=== PATIENT | female | born 1945 | race Caucasian/White ===

== ENCOUNTER 2017-11-20 08:42 | Observation (INO) | payer MEDICAID, MEDICARE, OTHER ==
[~2017-11-20] VITALS: Ht 180.3 cm; Wt 95.5 kg
[~2017-11-20 08:42] MED LIST: ATEN-102 PO; CARD120C4 PO; CIPR500T4 PO; DABI150 PO; FLAG500T PO; GLIP2.5T2 PO; LISI-363 PO
[2017-11-20 08:43] VITALS: BP 203/105; PULSE 118; RESP 20; TEMP 98.7; O2SAT 97
[2017-11-20] MEDS ORDERED: SODIUM CHLORID 0.9% 500 ML INJ 500 ML IV ONE (09:15)
--- NOTE | 2017-11-20 09:22 | PD ---
HPI Chief Complaint: weakness Time Seen by Provider: 09:02 Travel History International Travel<30 days: No Contact w/Intl Traveler<30days: No Traveled to known affect area: No History of Present Illness HPI 72 y/o female presents with generalized weakness and multiple falls over the past couple of weeks. It is gotten worse over the past couple of days. She states she lives at home by herself. She states she has had a start using a walker. She states that she is having no other specific complaints at this time other than an abrasion to her right elbow. She has not seen a physician for this yet. She states she has not had any loss of consciousness episodes with her falls. Patient is a poor historian and significant additional history is limited but she has states that she has been here before without change in medications or history. PFSH Past Medical History Narrative Medical by records Diabetes: Yes Diminished Hearing: No Hypertension: Yes Past Surgical History Narrative Surgical by records Section: Yes (X2) Social History Alcohol Use: No Tobacco Use: Yes (1/2 PPD) Substance Use: No Allergies-Medications (Allergen,Severity, Reaction): Coded Allergies: No Known Allergies (Unverified , 12/10/15) Reported Meds & Prescriptions Reported Meds & Active Scripts Active Flagyl (Metronidazole) 500 Mg Tab 500 Mg PO Q8H 8 Days Cipro (Ciprofloxacin HCl) 500 Mg Tab 500 Mg PO BID 8 Days Cardizem CD 120 mg (Diltiazem CD 120 mg) 120MG/24 Cap 1 Cap PO DAILY 30 Days Pradaxa 150 Mg Cap (Dabigatran) 150 Mg Cap 150 Mg PO BID 30 Days Reported Lisinopril 20 mg (Lisinopril) 20 Mg Tab 1 Tab PO DAILY Atenolol 50 Mg Tab 50 Mg PO DAILY Glipizide/Metformin HCl 5/500 (Glipizide-Metformin HCl 5/500) 1 Tab Tab 1 Tab PO BID Review of Systems ROS Limitations: Poor Historian Except as stated in HPI: all other systems reviewed are Neg Physical Exam Exam Limitations: Poor Historian Narrative GENERAL: 72 y/o female in no apparent distress SKIN: Focused skin assessment warm/dry. Abrasion over right elbow HEAD: Atraumatic. Normocephalic. EYES: Pupils equal and round. No scleral icterus. No injection or drainage. ENT: No nasal bleeding or discharge. Mucous membranes pink and moist. NECK: Trachea midline. No JVD. no tenderness in midline CARDIOVASCULAR: Regular rate and rhythm RESPIRATORY: No accessory muscle use. Clear to auscultation. Breath sounds equal bilaterally. GASTROINTESTINAL: Abdomen soft, non-tender, nondistended. MUSCULOSKELETAL: No obvious deformities. Pain with mild palpation of right elbow, no pain with other joints , neurovascularly intact, no lacerations over, compartments soft. NEUROLOGICAL: Awake. No obvious cranial nerve deficits. Motor grossly within normal limits. Normal speech. Data Data Last Documented VS Vital Signs Date Time Temp Pulse Resp B/P (MAP) Pulse Ox O2 Delivery O2 Flow Rate FiO2 11/20/17 11:26 104 16 141/79 (99) 98 Room Air 11/20/17 08:43 98.7 Orders Orders Electrocardiogram (11/20/17 09:03) Complete Blood Count With Diff (11/20/17 09:03) Comprehensive Metabolic Panel (11/20/17 09:03) Prothrombin Time / Inr (Pt) (11/20/17 09:03) Act Partial Throm Time (Ptt) (11/20/17 09:03) Lactic Acid Sepsis Protocol (11/20/17 09:03) Magnesium (Mg) (11/20/17 09:03) Ckmb (Isoenzyme) Profile (11/20/17 09:03) Troponin I (11/20/17 09:03) Urinalysis - C+S If Indicated (11/20/17 09:03) Chest, Single Ap (11/20/17 09:03) Ecg Monitoring (11/20/17 09:03) Iv Access Insert/Monitor (11/20/17 09:03) Oximetry (11/20/17 09:03) Ct Brain W/O Iv Contrast(Rout) (11/20/17 ) Sodium Chlorid 0.9% 500 Ml Inj (Ns 500 M (11/20/17 09:15) Elbow, Complete (4 Vws) (11/20/17 ) Splint Or Brace Apply/Monitor (11/20/17 09:59) Cath For Specimen (11/20/17 10:00) CKMB (11/20/17 09:20) CKMB% (11/20/17 09:20) Labs Laboratory Tests Test 11/20/17 09:20 11/20/17 09:25 11/20/17 10:00 White Blood Count 13.4 TH/MM3 Red Blood Count 5.32 MIL/MM3 Hemoglobin 16.0 GM/DL Hematocrit 47.3 % Mean Corpuscular Volume 88.8 FL Mean Corpuscular Hemoglobin 30.1 PG Mean Corpuscular Hemoglobin Concent 33.8 % Red Cell Distribution Width 15.5 % Platelet Count 335 TH/MM3 Mean Platelet Volume 9.8 FL Neutrophils (%) (Auto) 75.9 % Lymphocytes (%) (Auto) 17.4 % Monocytes (%) (Auto) 5.2 % Eosinophils (%) (Auto) 0.6 % Basophils (%) (Auto) 0.9 % Neutrophils # (Auto) 10.2 TH/MM3 Lymphocytes # (Auto) 2.3 TH/MM3 Monocytes # (Auto) 0.7 TH/MM3 Eosinophils # (Auto) 0.1 TH/MM3 Basophils # (Auto) 0.1 TH/MM3 CBC Comment DIFF FINAL Differential Comment Prothrombin Time 13.4 SEC Prothromb Time International Ratio 1.3 RATIO Activated Partial Thromboplast Time 53.1 SEC Blood Urea Nitrogen 11 MG/DL Creatinine 0.83 MG/DL Random Glucose 270 MG/DL Total Protein 8.0 GM/DL Albumin 3.6 GM/DL Calcium Level 9.6 MG/DL Magnesium Level 1.5 MG/DL Alkaline Phosphatase 120 U/L Aspartate Amino Transf (AST/SGOT) 21 U/L Alanine Aminotransferase (ALT/SGPT) 35 U/L Total Bilirubin 0.5 MG/DL Sodium Level 133 MEQ/L Potassium Level 3.8 MEQ/L Chloride Level 97 MEQ/L Carbon Dioxide Level 26.5 MEQ/L Anion Gap 10 MEQ/L Estimat Glomerular Filtration Rate 68 ML/MIN Total Creatine Kinase 133 U/L Creatine Kinase MB 1.4 NG/ML Troponin I LESS THAN 0.02 NG/ML Lactic Acid Level 1.4 mmol/L Urine Color LIGHT-YELLOW Urine Turbidity CLEAR Urine pH 7.0 Urine Specific [place] 1.005 Urine Protein 30 mg/dL Urine Glucose (UA) 300 mg/dL Urine Ketones NEG mg/dL Urine Occult Blood NEG Urine Nitrite NEG Urine Bilirubin NEG Urine Urobilinogen LESS THAN 2.0 MG/DL Urine Leukocyte Esterase NEG Urine RBC LESS THAN 1 /hpf Urine WBC LESS THAN 1 /hpf Urine Squamous Epithelial Cells <1 /hpf Microscopic Urinalysis Comment CATH-CULT NOT IND MDM Medical Decision Making Medical Screen Exam Complete: Yes Emergency Medical Condition: Yes Medical Record Reviewed: Yes ([facility] confirmed) Interpretation(s) EKG is A. fib at 115 results STEMI criteria, mild lateral depression CBC & BMP Diagram 11/20/17 09:20 Total Protein 8.0, Albumin 3.6, Calcium Level 9.6, Magnesium Level 1.5, Alkaline Phosphatase 120 H, Aspartate Amino Transf (AST/SGOT) 21, Alanine Aminotransferase (ALT/SGPT) 35, Total Bilirubin 0.5 Last 24 hours Impressions Chest X-Ray 11/20/17 0903 Signed Impressions: Service Date/Time: Monday, November 20, 2017 09:18 - CONCLUSION: No acute disease. Juan Lyon MD Head CT 11/20/17 0000 Signed Impressions: Service Date/Time: Monday, November 20, 2017 09:46 - CONCLUSION: 1. Mild ischemic atrophy. 2. No acute findings in the brain. Norris Schrader MD Elbow X-Ray 11/20/17 0000 Signed Impressions: Service Date/Time: Monday, November 20, 2017 09:19 - CONCLUSION: Possible avulsion injury off the tip of the olecranon. Norris Schrader MD Differential Diagnosis Anemia, renal failure, UTI, intercranial, electrolyte abnormality Narrative Course We will check blood work, urinalysis, trauma imaging and just with IV fluids and reevaluate X-ray shows possible avulsion fracture off the olecranon. Question age but given she has pain over this area and abrasion well-placed splint. Brother is here who has been helping take care of her over the past week and states given her progression he does not feel comfortable taking care of her at home. Patient is not safe for discharge home by herself. Will discuss with the hospitalist team Physician Communication Physician Communication dr hinojosa agrees to admit Diagnosis Primary Impression: General weakness Additional Impression: Frequent falls Admitting Information Admitting Physician Requests: Observation Mary Moore MD Nov 20, 2017 09:22
--- NOTE | 2017-11-20 09:46 | RADRPT ---
EXAM DATE/TIME: 11/20/2017 09:18 [facility] COMPARISON: CHEST SINGLE AP, December 10, 2015, 21:52. INDICATIONS : Shortness of breath. MEDICAL HISTORY : Hypertension. Diabetes mellitus type II. SURGICAL HISTORY : None. ENCOUNTER: Initial ACUITY: 1 day PAIN SCORE: 0/10 LOCATION: Bilateral chest FINDINGS: A single view of the chest demonstrates the lungs to be symmetrically aerated without evidence of mas s, infiltrate or effusion. The cardiomediastinal contours are unremarkable. Osseous structures are intact. CONCLUSION: No acute disease. Juan Lyon MD on November 20, 2017 at 9:44 Board Certified Radiologist. This report was verified electronically.
[2017-11-20 09:47] LABS: AUTOMATED NEUTROPHIL # 10.2 TH/MM3 (1.8-7.7); BASOPHIL # 0.1 TH/MM3 (0-0.2); BASOPHIL % 0.9 % (0.0-2.0); EOSINOPHIL # 0.1 TH/MM3 (0-0.4); EOSINOPHIL % 0.6 % (0.0-4.0); HEMATOCRIT 47.3 % (35.0-46.0); LYMPH % 17.4 % (9.0-44.0); LYMPHOCYTE # 2.3 TH/MM3 (1.0-4.8); MEAN CELL VOLUME 88.8 FL (80.0-100.0); MEAN CORPUSCULAR HEMOGLOBIN 30.1 PG (27.0-34.0); MEAN CORPUSCULAR HGB CONC 33.8 % (32.0-36.0); MEAN PLATELET VOLUME 9.8 FL (7.0-11.0); MONO % 5.2 % (0.0-8.0); MONOCYTE # 0.7 TH/MM3 (0-0.9); NEUT % 75.9 % (16.0-70.0); PLATELET COUNT 335 TH/MM3 (150-450); RED BLOOD COUNT 5.32 MIL/MM3 (4.00-5.30); RED CELL DISTRIBUTION WIDTH 15.5 % (11.6-17.2); WHITE BLOOD COUNT 13.4 TH/MM3 (4.0-11.0)
--- NOTE | 2017-11-20 09:49 | RADRPT ---
EXAM DATE/TIME: 11/20/2017 09:19 [facility] COMPARISON: No previous studies available for comparison. INDICATIONS : Right elbow pain, fall. MEDICAL HISTORY : None. SURGICAL HISTORY : None. ENCOUNTER: Initial ACUITY: 1 day PAIN SCORE: 7/10 LOCATION: Right posterior elbow FINDINGS: The osseous structures about the elbow are normal alignment. On the lateral view, there is a crescen tic calcific density measuring 4 mm which is adjacent to the tip of the olecranon and may represent a n avulsion injury. No radiographic evidence of elbow effusion. The radial head and distal humerus a ppear grossly intact. Angiocath is present in the antecubital fossa. CONCLUSION: Possible avulsion injury off the tip of the olecranon. Norris Schrader MD on November 20, 2017 at 9:46 Board Certified Radiologist. This report was verified electronically.
[2017-11-20 09:56] LABS: INTERNATIONAL NORMALIZED RATIO 1.3 RATIO; PROTHROMBIN TIME - PATIENT 13.4 SEC (9.8-11.6)
--- NOTE | 2017-11-20 09:58 | RADRPT ---
EXAM DATE/TIME: 11/20/2017 09:46 [facility] COMPARISON: No previous studies available for comparison. INDICATIONS : Trauma, fall. RADIATION DOSE: 39.21 CTDIvol (mGy) MEDICAL HISTORY : Hypertension. Diabetes mellitus type 2. SURGICAL HISTORY : None. ENCOUNTER: Initial ACUITY: 1 day PAIN SCALE: 0/10 LOCATION: cranial TECHNIQUE: Multiple contiguous axial images were obtained of the head. Using automated exposure control and adj ustment of the mA and/or kV according to patient size, radiation dose was kept as low as reasonably a chievable to obtain optimal diagnostic quality images. DICOM format image data is available electro nically for review and comparison. FINDINGS: CEREBRUM: The ventricles, sulci, and basal cisterns are prominent, characteristic of mild central and cortical atrophy. There is decreased attenuation in the periventricular white matter characteristic of diffus e ischemic demyelination. No evidence of midline shift, mass lesion, hemorrhage or acute infarction. No extra-axial fluid collections are seen. POSTERIOR FOSSA: The cerebellum and brainstem are intact. The 4th ventricle is midline. The cerebellopontine angle i s unremarkable. EXTRACRANIAL: The visualized portion of the orbits is intact. SKULL: The calvaria is intact. No evidence of skull fracture. CONCLUSION: 1. Mild ischemic atrophy. 2. No acute findings in the brain. Norris Schrader MD on November 20, 2017 at 9:55 Board Certified Radiologist. This report was verified electronically.
[2017-11-20 10:01] LABS: ALBUMIN 3.6 GM/DL (3.4-5.0); AST (GOT) 21 U/L (15-37); BICARBONATE 26.5 MEQ/L (21.0-32.0); BLOOD UREA NITROGEN 11 MG/DL (7-18); CALCIUM 9.6 MG/DL (8.5-10.1); CHLORIDE 97 MEQ/L (98-107); CREATININE 0.83 MG/DL (0.50-1.00); GLOMERULAR FILTRATION RATE 68 ML/MIN (>89); GLUCOSE,RANDOM 270 MG/DL (74-106); MAGNESIUM 1.5 MG/DL (1.5-2.5); SODIUM (NA) 133 MEQ/L (136-145)
[2017-11-20 10:07] LABS: ALKALINE PHOSPHATASE 120 U/L (45-117); ALT (GPT) 35 U/L (10-53); TOTAL BILIRUBIN ADULT 0.5 MG/DL (0.2-1.0); TROPONIN I LESS THAN 0.02 NG/ML (0.02-0.05)
[2017-11-20 10:49] LABS: BILIRUBIN, URINE NEG (NEG); BLOOD, URINE NEG (NEG); GLUCOSE,URINE 300 mg/dL (NEG); KETONE, URINE NEG (NEG); NITRITE,URINE NEG (NEG); SQUAMOUS EPITHELIAL CELL URINE <1 /hpf (0-5); URINE COLOR LIGHT-YELLOW (YELLW/STRAW); URINE LEUKOCYTE ESTERASE NEG (NEG)
[2017-11-20 11:26] VITALS: BP 141/79; PULSE 104; RESP 16; O2SAT 98
[2017-11-20] MEDS ORDERED: BISACODYL 10 MG SUPP RECTAL PRN (11:45)
[2017-11-20] MEDS ORDERED: SENNOSIDES 8.6 MG TAB PO PRN (11:45)
[2017-11-20] MEDS ORDERED: ACETAMINOPHEN 325 MG TAB PO PRN (11:45)
[2017-11-20] MEDS ORDERED: SODIUM CHLORIDE 0.9% FLUSH 10 ML FLUSH IV FLUSH PRN (11:45)
[2017-11-20] MEDS ORDERED: ONDANSETRON HCL 4 MG/2 ML VIAL IVP PRN (11:45)
[2017-11-20] MEDS ORDERED: MAGNESIUM HYDROXIDE SUSP 30 ML CUP PO PRN (11:45)
[2017-11-20] MEDS ORDERED: NALOXONE HCL 0.4 MG/ML AMP IV PUSH PRN (11:45)
[2017-11-20] MEDS ORDERED: LACTULOSE SYRUP 20 GM/30 ML CUP PO PRN (11:45)
--- NOTE | 2017-11-20 13:03 | HHI.HP ---
HPI Service [facility] Primary Care Physician Unknown Admission Diagnosis generalized weakness, frequent Falls Diagnoses: Chief Complaint: weakness, recurrent falls Travel History International Travel<30 Days: No Contact w/Intl Traveler <30 Da: No Traveled to Known Affected Are: No History of Present Illness Written by Annette Mcguire, acting as scribe for Dr. Mancuso on 11/20/17 at 13: 01. 72-year-old female with history of DM, Afib, HTN, COPD, presents with a 2 week history of worsening weakness and recurrent falls. The patient states her son-in -law is a PA in [place] and recommended she come to the ER for further evaluation. She is seen with her brother at bedside who lives in [place]. The patient reports she fell on Saturday 11/18. She denies hitting her head or any loss of consciousness. She states her legs just became weak and gave out. She also reports she fell last Tuesday 11/14 after her legs became weak, and she was unable to get off the floor for a couple hours until a neighbor found her. She started using a walker recently because of the weakness in her legs. She lives alone. Denies any neck or back pain, headache, lightheadedness, dizziness , chest pain, palpitations, shortness of breath, abdominal pain, nausea/vomiting , or any other medical complaints at this time. Review of Systems Except as stated in HPI: all other systems reviewed are Neg Past Family Social History Past Medical History Diabetes Afib HTN COPD Past Surgical History C-sections x2 Reported Medications Lisinopril 40 Mg Tab 40 Mg PO DAILY Glipizide-Metformin 5-500 mg (Glipizide/Metformin HCl) 5 Mg-500 Mg Tablet 1 Tab PO BID Metformin (Metformin HCl) 500 Mg Tab 500 Mg PO BIDPC Atenolol 50 Mg Tab 150 Mg PO DAILY Atorvastatin (Atorvastatin Calcium) 40 Mg Tab 40 Mg PO HS Metoprolol Tartrate 25 Mg Tab 25 Mg PO BID Hydrochlorothiazide 25 Mg Tab 25 Mg PO DAILY Pradaxa (Dabigatran) 150 Mg Cap 150 Mg PO BID Cartia Xt (Diltiazem ER 24 HR) 120 Mg Caper 240 Mg PO DAILY Januvia (Sitagliptin Phosphate) 100 Mg Tab 100 Mg PO DAILY Allergies: Coded Allergies: No Known Allergies (Unverified , 12/10/15) Active Ordered Medications Current Medications Medications (Trade) Dose Ordered Sig/Brayan Route Start Time Stop Time Status Last Admin (NS Flush) 2 ml UNSCH PRN IV FLUSH 11/20/17 11:45 (NS Flush) 2 ml BID IV FLUSH 11/20/17 21:00 (Tylenol) 650 mg Q4H PRN PO 11/20/17 11:45 (Zofran Inj) 4 mg Q6H PRN IVP 11/20/17 11:45 (Narcan Inj) 0.4 mg UNSCH PRN IV PUSH 11/20/17 11:45 (Xiomara-Colace) 1 tab BID PO 11/20/17 21:00 (Milk Of Magnesia Liq) 30 ml Q12H PRN PO 11/20/17 11:45 (Senokot) 17.2 mg Q12H PRN PO 11/20/17 11:45 (Dulcolax Supp) 10 mg DAILY PRN RECTAL 11/20/17 11:45 (Lactulose Liq) 30 ml DAILY PRN PO 11/20/17 11:45 Family History Uncle with a "leg problem" where his legs just quit working Social History Smokes tobacco 4-5cigarettes daily Denies any alcohol or illicit drug use. Physical Exam Vital Signs Vital Signs Date Time Temp Pulse Resp B/P (MAP) Pulse Ox O2 Delivery O2 Flow Rate FiO2 11/20/17 12:30 11/20/17 11:26 104 16 141/79 (99) 98 Room Air 11/20/17 08:43 98.7 118 20 203/105 (137) 97 Room Air Physical Exam GENERAL: Well-nourished, well-developed patient in NAD. Ambulating her room with a walker. SKIN: Warm and dry. No rash. HEAD: Normocephalic. Atraumatic. EYES: Pupils equal and round. No scleral icterus. No injection or drainage. ENT: No nasal bleeding or discharge. Mucous membranes pink and moist. NECK: Supple. Trachea midline. CARDIOVASCULAR: Irregular rate and rhythm. S1, S2 noted. No murmur appreciated. RESPIRATORY: No accessory muscle use. Clear to auscultation. Breath sounds equal bilaterally. GASTROINTESTINAL: Abdomen soft, non-tender, nondistended. Normoactive bowel sounds x4. MUSCULOSKELETAL: No obvious deformities. Extremities without clubbing, cyanosis , or edema. RUE in splint/sling. NEUROLOGICAL: Awake and alert. No obvious cranial nerve deficits. Motor grossly within normal limits. 5/5 muscle strength in bilateral upper and lower extremities. Normal speech. PSYCHIATRIC: Appropriate mood and affect; insight and judgment fair. Laboratory Laboratory Tests Test 11/20/17 09:20 11/20/17 09:25 11/20/17 10:00 White Blood Count 13.4 Red Blood Count 5.32 Hemoglobin 16.0 Hematocrit 47.3 Mean Corpuscular Volume 88.8 Mean Corpuscular Hemoglobin 30.1 Mean Corpuscular Hemoglobin Concent 33.8 Red Cell Distribution Width 15.5 Platelet Count 335 Mean Platelet Volume 9.8 Neutrophils (%) (Auto) 75.9 Lymphocytes (%) (Auto) 17.4 Monocytes (%) (Auto) 5.2 Eosinophils (%) (Auto) 0.6 Basophils (%) (Auto) 0.9 Neutrophils # (Auto) 10.2 Lymphocytes # (Auto) 2.3 Monocytes # (Auto) 0.7 Eosinophils # (Auto) 0.1 Basophils # (Auto) 0.1 CBC Comment DIFF FINAL Differential Comment Prothrombin Time 13.4 Prothromb Time International Ratio 1.3 Activated Partial Thromboplast Time 53.1 Blood Urea Nitrogen 11 Creatinine 0.83 Random Glucose 270 Total Protein 8.0 Albumin 3.6 Calcium Level 9.6 Magnesium Level 1.5 Alkaline Phosphatase 120 Aspartate Amino Transf (AST/SGOT) 21 Alanine Aminotransferase (ALT/SGPT) 35 Total Bilirubin 0.5 Sodium Level 133 Potassium Level 3.8 Chloride Level 97 Carbon Dioxide Level 26.5 Anion Gap 10 Estimat Glomerular Filtration Rate 68 Total Creatine Kinase 133 Creatine Kinase MB 1.4 Troponin I LESS THAN 0.02 Lactic Acid Level 1.4 Urine Color LIGHT-YELLOW Urine Turbidity CLEAR Urine pH 7.0 Urine Specific [place] 1.005 Urine Protein 30 Urine Glucose (UA) 300 Urine Ketones NEG Urine Occult Blood NEG Urine Nitrite NEG Urine Bilirubin NEG Urine Urobilinogen LESS THAN 2.0 Urine Leukocyte Esterase NEG Urine RBC LESS THAN 1 Urine WBC LESS THAN 1 Urine Squamous Epithelial Cells <1 Microscopic Urinalysis Comment CATH-CULT NOT IND Result Diagram: 11/20/1791911/20/17919 Imaging Last Impressions Chest X-Ray 11/20/17902 Signed Impressions: Service Date/Time: Monday, November 20, 2017 09:18 - CONCLUSION: No acute disease. Juan Lyon MD Head CT 11/20/17 0000 Signed Impressions: Service Date/Time: Monday, November 20, 2017 09:46 - CONCLUSION: 1. Mild ischemic atrophy. 2. No acute findings in the brain. Norris Schrader MD Elbow X-Ray 11/20/17 0000 Signed Impressions: Service Date/Time: Monday, November 20, 2017 09:19 - CONCLUSION: Possible avulsion injury off the tip of the olecranon. MD Juan M Garcia VTE Risk Assessment Caprini VTE Risk Assessment: Mod/High Risk (score >= 2) Caprini Risk Assessment Model Point Value = 1 Point Value = 2 Point Value = 3 Point Value = 5 Age 41-60 Minor surgery BMI > 25 kg/m2 Swollen legs Varicose veins or History of unexplained or recurrent spontaneous Oral contraceptives or hormone replacement Sepsis (< 1 month) Serious lung disease, including pneumonia (< 1 month) Abnormal pulmonary function Acute myocardial infarction Congestive heart failure (< 1 month) History of inflammatory bowel disease Medical patient at bed rest Age 61-74 Arthroscopic surgery Major open surgery (> 45 min) Laparoscopic surgery (> 45 min) Malignancy Confined to bed (> 72 hours) Immobilizing plaster cast Central venous access Age >= 75 History of VTE Family history of VTE Factor V Leiden Prothrombin [id number] Lupus anticoagulant Anticardiolipin antibodies Elevated serum homocysteine Heparin-induced thrombocytopenia Other congenital or acquired thrombophilia Stroke (< 1 month) Elective arthroplasty Hip, pelvis, or leg fracture Acute spinal cord injury (< 1 month) Prophylaxis Regimen Total Risk Factor Score Risk Level Prophylaxis Regimen 0-1 Low Early ambulation 2 Moderate Order ONE of the following: *Sequential Compression Device (SCD) *Heparin 5000 units SQ BID 3-4 Higher Order ONE of the following medications: *Heparin 5000 units SQ TID *Enoxaparin/Lovenox 40 mg SQ daily (WT < 150 kg, CrCl > 30 mL/min) *Enoxaparin/Lovenox 30 mg SQ daily (WT < 150 kg, CrCl > 10-29 mL/min) *Enoxaparin/Lovenox 30 mg SQ BID (WT < 150 kg, CrCl > 30 mL/min) AND/OR *Sequential Compression Device (SCD) 5 or more Highest Order ONE of the following medications: *Heparin 5000 units SQ TID (Preferred with Epidurals) *Enoxaparin/Lovenox 40 mg SQ daily (WT < 150 kg, CrCl > 30 mL/min) *Enoxaparin/Lovenox 30 mg SQ daily (WT < 150 kg, CrCl > 10-29 mL/min) *Enoxaparin/Lovenox 30 mg SQ BID (WT < 150 kg, CrCl > 30 mL/min) AND *Sequential Compression Device (SCD) Assessment and Plan Assessment and Plan 72-year-old female with history of DM, Afib, HTN, COPD, presents with a 2 week history of worsening weakness and recurrent falls. Weakness, Recurrent Falls: unclear etiology. Rule out Parkinson's vs radiculopathy/myelopathy vs CVA. -Head CT images reviewed, shows mild ischemic atrophy otherwise no acute findings -Monitor neuro checks, monitor on telemetry -Consult PT/OT, patient likely needs placement, lives alone with recurrent falls -Consult case management to assist with discharge planning -Consult neurology for further evaluation Elbow Fracture: s/p fall as above. -Right elbow xray images reviewed, shows possible avulsion injury off the tip of the olecranon -S/p splint in the ED -Outpatient follow up with orthopedics Atrial Fibrillation: chronic -EKG reviewed, shows atrial fibrillation with RVR, rate 115 -monitor on telemetry -continue home meds once med rec updated Diabetes Mellitus: chronic -RN to update med rec -Monitor Accu-checks and cover with SSI Hypertension: BP elevated at 203/105 upon arrival, decreased to 138/78 spontaneously. -restart home meds once med rec updated -monitor BP, adjust antihypertensives as needed COPD: chronic, does not appear to be in exacerbation. CXR unremarkable. -Continue home meds -Duonebs prn Tobacco Use: chronic, smokes 4-5 cigarettes daily -counseled on cessation -will provide nicotine patch if needed DVT Prophylaxis: teds/SCDs Discussed Condition With Patient, Patient's brother at bedside, ED MD, RN Attending Statement This note was transcribed by alison Mcguire. I, Dr. Azam Mancuso personally performed the history, physical exam, and medical decision making; and confirmed the accuracy of the information in the transcribed note. Authenticated by Dr. Azam Mancuso on 11/20/17 at 16:20. Annette Mcguire PA-C Nov 20, 2017 13:03 Azam Mancuso MD Nov 20, 2017 16:21
--- NOTE | 2017-11-20 14:28 | EKG ---
Date Performed: 11/20/2017 Time Performed: 09:10:38 PTAGE: 72 years EKG: ATRIAL FIBRILLATION WITH RAPID VENTRICULAR RESPONSE MODERATE ST DEPRESSION ABNORMAL ECG PREVIOUS TRACING 12/10/15 Since the prior tracing, the ventricular response of the atrial fibri llation is under better control. There has been slight increase in the inferolateral ST segment rodriguez es. DOCTOR: Doris Alfred Interpretating Date/Time 11/20/2017 14:27:53
[2017-11-20] MEDS ORDERED: SITA1TAB2 PO (14:30)
[2017-11-20] MEDS ORDERED: HYDR25TA5 PO (14:30)
[2017-11-20] MEDS ORDERED: CART120C PO (14:30)
[2017-11-20] MEDS ORDERED: PRAD150C PO (14:30)
[2017-11-20] MEDS ORDERED: METF500T PO (14:30)
[2017-11-20] MEDS ORDERED: ATEN50TA PO (14:30)
[2017-11-20] MEDS ORDERED: ATOR40TA16 PO (14:30)
[2017-11-20] MEDS ORDERED: LISI40TA PO (14:30)
[2017-11-20] MEDS ORDERED: GLIP5TAB PO (14:30)
[2017-11-20] MEDS ORDERED: METO25TA3 PO (14:30)
[2017-11-20 14:47] VITALS: BP 138/78; PULSE 105; RESP 18; TEMP 99.5; O2SAT 94
[2017-11-20 15:13] VITALS: PULSE 76
[2017-11-20] MEDS ORDERED: GLUCAGON 1 MG/ML VIAL OTHER PRN (16:00)
[2017-11-20] MEDS ORDERED: RESP: ALBUTEROL 2.5 MG/IPRATROPIUM 0.5 MG NEB (PRN) NEB (16:00)
[2017-11-20] MEDS ORDERED: DEXTROSE 50% IN WATER 50 ML VIAL(D50) IV PUSH PRN (16:00)
[2017-11-20] MEDS: INSULIN ASPART SUPPLEMENTAL SCALE SQ SCH ×2 (16:51→23:07)
[2017-11-20] MEDS: REMOVE OLD PATCH T-DERMAL SCH (17:30)
[2017-11-20] MEDS: NICOTINE 14 MG/24 HR PATCH T-DERMAL SCH (17:40)
[2017-11-20] MEDS: DILTIAZEM-CD 240 MG CAP ER PO SCH (17:40)
[2017-11-20 21:01] VITALS: BP_SYST 123; BP_SYST 126; BP_SYST 143; BP_DIAS 70; BP_DIAS 82; BP_DIAS 89; PULSE 93; RESP 17; TEMP 98.7; O2SAT 96
[2017-11-20] MEDS: DABIGATRAN ETEXILATE 150 MG CAP PO SCH (21:31)
[2017-11-20] MEDS: ATORVASTATIN 40 MG TAB PO SCH (21:32)
[2017-11-20] MEDS: SODIUM CHLORIDE 0.9% FLUSH 10 ML FLUSH IV FLUSH SCH (21:32)
[2017-11-20] MEDS: DOCUSATE SODIUM 50 MG/SENNA 8.6 MG TAB PO SCH (21:32)
[2017-11-21] VITALS (7 sets, daily range): BP systolic 134–169; BP diastolic 78–95; PULSE 70–100; RESP 16–18; TEMP 97.6–98.2; O2SAT 92–95
[2017-11-21 07:58] LABS: AUTOMATED NEUTROPHIL # 8.9 TH/MM3 (1.8-7.7); BASOPHIL # 0.1 TH/MM3 (0-0.2); BASOPHIL % 1.1 % (0.0-2.0); EOSINOPHIL # 0.2 TH/MM3 (0-0.4); EOSINOPHIL % 1.2 % (0.0-4.0); HEMATOCRIT 48.6 % (35.0-46.0); HEMOGLOBIN 16.2 GM/DL (11.6-15.3); LYMPH % 19.4 % (9.0-44.0); LYMPHOCYTE # 2.4 TH/MM3 (1.0-4.8); MEAN CELL VOLUME 89.2 FL (80.0-100.0); MEAN CORPUSCULAR HEMOGLOBIN 29.7 PG (27.0-34.0); MEAN CORPUSCULAR HGB CONC 33.3 % (32.0-36.0); MEAN PLATELET VOLUME 9.4 FL (7.0-11.0); MONO % 5.3 % (0.0-8.0); MONOCYTE # 0.6 TH/MM3 (0-0.9); PLATELET COUNT 332 TH/MM3 (150-450); RED BLOOD COUNT 5.45 MIL/MM3 (4.00-5.30); RED CELL DISTRIBUTION WIDTH 15.7 % (11.6-17.2); WHITE BLOOD COUNT 12.2 TH/MM3 (4.0-11.0)
[2017-11-21] MEDS: INSULIN ASPART SUPPLEMENTAL SCALE SQ SCH ×4 (08:00→22:09)
[2017-11-21 08:23] LABS: BICARBONATE 30.1 MEQ/L (21.0-32.0); CALCIUM 9.1 MG/DL (8.5-10.1); CREATININE 0.89 MG/DL (0.50-1.00)
[2017-11-21] MEDS: DABIGATRAN ETEXILATE 150 MG CAP PO SCH ×2 (08:47→22:08)
[2017-11-21] MEDS: NICOTINE 14 MG/24 HR PATCH T-DERMAL SCH (08:47)
[2017-11-21] MEDS: DILTIAZEM-CD 240 MG CAP ER PO SCH (08:47)
[2017-11-21] MEDS: REMOVE OLD PATCH T-DERMAL SCH (08:47)
[2017-11-21] MEDS: DOCUSATE SODIUM 50 MG/SENNA 8.6 MG TAB PO SCH ×2 (08:47→22:08)
[2017-11-21] MEDS: SODIUM CHLORIDE 0.9% FLUSH 10 ML FLUSH IV FLUSH SCH ×2 (08:48→22:08)
[2017-11-21] MEDS: HYDROCHLOROTHIAZIDE 25 MG TAB PO SCH (08:49)
--- NOTE | 2017-11-21 10:50 | HHI.PR ---
Subjective Remarks Follow up weakness, falls. Patient states that she feels "about the same as yesterday". She denies chest pain, dyspnea. Objective Vitals Vital Signs Date Time Temp Pulse Resp B/P (MAP) Pulse Ox O2 Delivery O2 Flow Rate FiO2 11/21/17 07:57 97.9 96 16 169/89 (115) 95 141/94 (110) 160/93 (115) 11/21/17 04:28 98.2 87 17 141/78 (99) 94 11/21/17 04:18 100 11/21/17 00:35 70 11/20/17 21:01 98.7 93 17 123/82 (96) 96 126/89 (101) 143/70 (94) 11/20/17 15:13 76 11/20/17 14:47 99.5 105 18 138/78 (98) 94 11/20/17 12:30 11/20/17 11:26 104 16 141/79 (99) 98 Room Air I/O 11/20/17 11/20/17 11/20/17 11/21/17 11/21/17 11/21/17 07:00 15:00 23:00 07:00 15:00 23:00 Intake Total 500 ml 300 ml 240 ml Balance 500 ml 300 ml 240 ml Intake Oral 300 ml 240 ml IV Total 500 ml # Voids 2 3 # Bowel Movements 1 Result Diagram: 11/21/17 0749 11/21/17 0740 Imaging Last Impressions Chest X-Ray 11/20/17 0903 Signed Impressions: Service Date/Time: Monday, November 20, 2017 09:18 - CONCLUSION: No acute disease. Juan Lyon MD Head CT 11/20/17 0000 Signed Impressions: Service Date/Time: Monday, November 20, 2017 09:46 - CONCLUSION: 1. Mild ischemic atrophy. 2. No acute findings in the brain. Norris Schrader MD Elbow X-Ray 11/20/17 0000 Signed Impressions: Service Date/Time: Monday, November 20, 2017 09:19 - CONCLUSION: Possible avulsion injury off the tip of the olecranon. Norris Schrader MD Objective Remarks General: Elderly female in no acute distress. Heart: Tachycardic. No murmur. Lungs: Clear to auscultation bilaterally. No wheezes, rales, or rhonchi. Breathing is nonlabored. Abdomen: Soft, nontender, nondistended. Extremities: No lower extremity edema. Right upper extremity in splint, sling. Psych: Alert and oriented. Procedures None Urinary Catheter: No Vascular Central Line Catheter: No A/P Assessment and Plan 1. Weakness, recurrent falls: Continue PT/OT. Neurology consult is pending. MRI ordered. 2. Elbow fracture: S/P fall. In splint. Follow up as outpatient with orthopedic surgery. 3. A-fib: Chronic. Continue diltiazem. 4. Diabetes mellitus: Monitor Accu-checks and cover with sliding scale insulin. 5. Hypertension: Continue diltiazem, HCTZ. 6. COPD: Not in acute exacerbation. Duonebs as needed. 7. Tobacco abuse: Counseled to quit smoking. 8. DVT prophylaxis: SCDs/ANNI hose. Discharge Planning Patient is not safe for discharge home at this time. She remains confused and weak. I spoke with the patient's daughter and son-in-law at the patient's request, and they are requesting SNF placement. Case management assisting with discharge planning. zAam Mancuso MD Nov 21, 2017 10:50
--- NOTE | 2017-11-21 12:13 | MB ---
cc: SONU HNESON M.D. DATE OF CONSULTATION: 11/21/2017. REASON FOR CONSULTATION: This is a 72-year-old seen in neurological consultation with regards to falls. HISTORY OF PRESENT ILLNESS: She has been having falls for several months. She usually is able to get up on her own. She feels her equilibrium is off. She has been using a walker. She lives by herself. She no longer drives. Neighbors help her. Apparently her son in law he is here and brought her to the hospital. She does not lose consciousness with the falls. No apparent seizure activity. PAST MEDICAL HISTORY: There is a history of: 1. Diabetes. 2. Atrial fibrillation. 3. Hypertension. MEDICATIONS: 1. Lisinopril. 2. Glipizide. 3. Pradaxa. 4. Cartia. 5. Januvia. 6. Hydrochlorothiazide. 7. Metoprolol. 8. Atorvastatin. 9. Atenolol. 10. Metformin. SOCIAL HISTORY: She smokes a few cigarettes a day. No alcohol use. NEUROLOGICAL EXAMINATION: An alert and pleasant woman. She seems to be functioning well cognitive-byrnes on a brief bedside exam. Ocular movements and visual amaro are full. She has a right arm sling in immobilization from minor fracture from a recent fall. She says she controls her bladder wall. She stands up with my assistance also the nursing staff and she starts walking with short steps, somewhat shuffling gait and she is cautious with a broad-based stance. She was put back in bed. The reflexes were trace versus absent throughout and plantar responses equivocal. Sensory limited without any major dysfunction. Position sense preserved for the distal lower extremities. IMAGING STUDIES: The CT brain is showing no acute abnormality. Microvascular disease noted. ASSESSMENT: 1. Recurrent falls. 2. Gait disorder. 3. History of chronic atrial fibrillation on Pradaxa. 4. Diabetes mellitus. RECOMMENDATIONS / PLAN: 1. We will obtain an MRI of brain and MRI cervical spine. 2. Will check a B12 and RPR. 3. Other labs noted. Her chemistry includes a normal CPK, glucose 270 yesterday and 307 today. Sodium 133, potassium normal, BUN and creatinine normal. I will follow the neurological course. Thank you for asking us to assist in her care. MD STEPHAN Arceo/LIMA /10:02 AM /11:49 AM
[2017-11-21] MEDS ORDERED: GADODIAMIDE PF 287 MG/ML 20 ML VIAL (for RAD MRI) IVCONTRAST ONE (13:00)
--- NOTE | 2017-11-21 13:40 | RADRPT ---
EXAM DATE/TIME: 11/21/2017 12:42 [facility] COMPARISON: CT BRAIN W/O CONTRAST, November 20, 2017, 9:46. INDICATIONS : Frequent falls. Bilateral leg weakness. CONTRAST: 15 cc Omniscan (gadodiamide) IV MEDICAL HISTORY : Hypertension. Diabetes mellitus type 2. SURGICAL HISTORY : section. ENCOUNTER: Initial ACUITY: 1 day PAIN SCORE: 0/10 LOCATION: cranial TECHNIQUE: Multiplanar, multisequence MRI of the brain was performed both prior to and following the administrat ion of paramagnetic contrast. FINDINGS: CEREBRUM: The ventricles are normal for age. There is bilateral cortical atrophy. No evidence of midline shift, mass lesion, hemorrhage or acute infarction. No extraaxial fluid collections are seen. The pituita ry gland and suprasellar cistern are normal in configuration. WHITE MATTER: Moderate chronic white matter changes are noted bilaterally. POSTERIOR FOSSA: The cerebellum and brainstem are intact. The 4th ventricle is midline. The cerebellopontine angle is unremarkable. The cerebellar tonsils are normal in position. DIFFUSION IMAGING: No focal areas of restricted diffusion are seen. No evidence of acute infarction. EXTRACRANIAL: The visualized portions of the orbits and paranasal sinuses are unremarkable. POST-CONTRAST: No abnormal areas of parenchymal or dural enhancement. No evidence of blood-brain barrier breakdown. CONCLUSION: 1. Bilateral cortical atrophy and chronic white matter changes characteristic of ischemic demyeliniza tion. 2. No acute pathology. Uday Cutler MD on November 21, 2017 at 13:34 Board Certified Radiologist. This report was verified electronically.
[2017-11-21] MEDS: ATORVASTATIN 40 MG TAB PO SCH (22:08)
[2017-11-22 04:00] VITALS: PULSE 84
[2017-11-22 04:37] VITALS: BP_SYST 138; BP_SYST 143; BP_DIAS 70; BP_DIAS 72; BP_DIAS 83; PULSE 90; RESP 18; TEMP 97.9; O2SAT 95
[2017-11-22 04:49] LABS: AUTOMATED NEUTROPHIL # 7.8 TH/MM3 (1.8-7.7); BASOPHIL # 0.1 TH/MM3 (0-0.2); BASOPHIL % 0.8 % (0.0-2.0); EOSINOPHIL # 0.2 TH/MM3 (0-0.4); EOSINOPHIL % 1.8 % (0.0-4.0); HEMATOCRIT 45.7 % (35.0-46.0); HEMOGLOBIN 15.4 GM/DL (11.6-15.3); LYMPH % 23.2 % (9.0-44.0); LYMPHOCYTE # 2.7 TH/MM3 (1.0-4.8); MEAN CELL VOLUME 88.9 FL (80.0-100.0); MEAN CORPUSCULAR HGB CONC 33.7 % (32.0-36.0); MEAN PLATELET VOLUME 9.7 FL (7.0-11.0); MONO % 6.1 % (0.0-8.0); MONOCYTE # 0.7 TH/MM3 (0-0.9); NEUT % 68.1 % (16.0-70.0); PLATELET COUNT 298 TH/MM3 (150-450); RED BLOOD COUNT 5.14 MIL/MM3 (4.00-5.30); RED CELL DISTRIBUTION WIDTH 15.3 % (11.6-17.2); WHITE BLOOD COUNT 11.5 TH/MM3 (4.0-11.0)
[2017-11-22 04:59] LABS: BICARBONATE 28.7 MEQ/L (21.0-32.0); CREATININE 0.81 MG/DL (0.50-1.00)
[2017-11-22 05:17] LABS: INTERNATIONAL NORMALIZED RATIO 1.3 RATIO; PROTHROMBIN TIME - PATIENT 12.8 SEC (9.8-11.6)
[2017-11-22] MEDS: INSULIN ASPART SUPPLEMENTAL SCALE SQ SCH ×4 (08:00→22:18)
[2017-11-22] MEDS: HYDROCHLOROTHIAZIDE 25 MG TAB PO SCH (08:53)
[2017-11-22] MEDS: DABIGATRAN ETEXILATE 150 MG CAP PO SCH ×2 (08:53→22:18)
[2017-11-22] MEDS: DILTIAZEM-CD 240 MG CAP ER PO SCH (08:53)
[2017-11-22] MEDS: DOCUSATE SODIUM 50 MG/SENNA 8.6 MG TAB PO SCH ×2 (08:53→21:00)
[2017-11-22] MEDS: REMOVE OLD PATCH T-DERMAL SCH (08:54)
[2017-11-22] MEDS: NICOTINE 14 MG/24 HR PATCH T-DERMAL SCH (08:54)
[2017-11-22] MEDS: SODIUM CHLORIDE 0.9% FLUSH 10 ML FLUSH IV FLUSH SCH ×2 (09:00→22:16)
[2017-11-22 09:28] VITALS: BP 165/77; PULSE 100; RESP 20; TEMP 96.2; O2SAT 96
--- NOTE | 2017-11-22 11:15 | HHI.PR ---
Subjective Remarks Follow up weakness, confusion. Patient has no complaints at this time. Heart rate has been elevated. No chest pain, dyspnea. Objective Vitals Vital Signs Date Time Temp Pulse Resp B/P (MAP) Pulse Ox O2 Delivery O2 Flow Rate FiO2 11/22/17 09:28 96.2 100 20 165/77 (106) 96 11/22/17 04:37 97.9 90 18 138/83 (101) 95 138/70 (92) 143/72 (95) 11/22/17 04:00 84 11/21/17 23:37 97.9 90 18 144/80 (101) 92 11/21/17 15:16 98.2 90 18 156/92 (113) 95 I/O 11/21/17 11/21/17 11/21/17 11/22/17 11/22/17 11/22/17 07:00 15:00 23:00 07:00 15:00 23:00 Intake Total 240 ml Balance 240 ml Intake Oral 240 ml # Voids 3 # Bowel Movements 1 Result Diagram: 11/22/17 0345 11/22/17 0345 Imaging Last Impressions Brain MRI 11/21/17 0000 Signed Impressions: Service Date/Time: Tuesday, November 21, 2017 12:42 - CONCLUSION: 1. Bilateral cortical atrophy and chronic white matter changes characteristic of ischemic demyelinization. 2. No acute pathology. Uday Cutler MD Chest X-Ray 11/20/17 0903 Signed Impressions: Service Date/Time: Monday, November 20, 2017 09:18 - CONCLUSION: No acute disease. Juan Lyon MD Head CT 11/20/17 0000 Signed Impressions: Service Date/Time: Monday, November 20, 2017 09:46 - CONCLUSION: 1. Mild ischemic atrophy. 2. No acute findings in the brain. Norris Schrader MD Elbow X-Ray 11/20/17 0000 Signed Impressions: Service Date/Time: Monday, November 20, 2017 09:19 - CONCLUSION: Possible avulsion injury off the tip of the olecranon. Norris Schrader MD Objective Remarks General: Elderly female in no acute distress. Heart: Tachycardic, irregular. Lungs: Clear to auscultation bilaterally. No wheezes, rales, or rhonchi. Breathing is nonlabored. Abdomen: Soft, nontender, nondistended. Extremities: No lower extremity edema. Right upper extremity in splint, sling. Psych: Alert and oriented. Procedures None Urinary Catheter: No Vascular Central Line Catheter: No A/P Assessment and Plan 1. Weakness, recurrent falls: Continue PT/OT. Neurology consult is pending. MRI ordered. 2. Elbow fracture: S/P fall. In splint. Follow up as outpatient with orthopedic surgery. 3. A-fib: Rate increased. Chronic. Continue diltiazem. Restart metoprolol. Monitor on telemetry. 4. Diabetes mellitus: Monitor Accu-checks and cover with sliding scale insulin. 5. Hypertension: Continue diltiazem, HCTZ. 6. COPD: Not in acute exacerbation. Duonebs as needed. 7. Tobacco abuse: Counseled to quit smoking. 8. DVT prophylaxis: SCDs/ANNI hobson. Discharge Planning Patient is not safe for discharge home at this time. She remains confused and weak. I spoke with the patient's daughter and son-in-law at the patient's request, and they are requesting SNF placement. Case management assisting with discharge planning. Awaiting insurance authorization. Azam Mancuso MD Nov 22, 2017 11:15
[2017-11-22] MEDS: METOPROLOL TARTRATE 25 MG TAB PO SCH ×2 (12:15→22:18)
[2017-11-22 12:33] VITALS: BP_SYST 136; BP_SYST 163; BP_DIAS 66; BP_DIAS 86; PULSE 82; PULSE 88; RESP 18; RESP 20; TEMP 95.9; TEMP 96; O2SAT 94; O2SAT 96
[2017-11-22 16:32] VITALS: BP_SYST 125; BP_SYST 131; BP_DIAS 83; BP_DIAS 86; PULSE 84; PULSE 89; RESP 18; TEMP 96; TEMP 96.1; O2SAT 90; O2SAT 92
[2017-11-22 20:19] VITALS: BP 155/76; PULSE 80; RESP 18; TEMP 98; O2SAT 96
[2017-11-22] MEDS: ATORVASTATIN 40 MG TAB PO SCH (22:17)
[2017-11-23 00:16] VITALS: BP 133/85; PULSE 70; RESP 18; TEMP 98; O2SAT 95
[2017-11-23 04:28] VITALS: BP 132/77; PULSE 79; RESP 18; TEMP 98; O2SAT 97
--- NOTE | 2017-11-23 07:37 | RADRPT ---
EXAM DATE/TIME: 11/21/2017 12:42 [facility] COMPARISON: No previous studies available for comparison. INDICATIONS : Extremity weakness. Frequent falls, bilateral leg weakness. CONTRAST: 15 cc Omniscan (gadodiamide) IV MEDICAL HISTORY : Hypertension. Diabetes mellitus type 2. SURGICAL HISTORY : section. ENCOUNTER: Initial ACUITY: 1 day PAIN SCORE: 0/10 LOCATION: cranial TECHNIQUE: Multiplanar, multisequence MRI examination of the cervical spine was performed. FINDINGS: Alignment is anatomic. Same intensity in the thoracic vertebral bodies are easily homogeneous. No e vidence of intense cord is normal Several tonsils are omental in position. C2-C3: The thecal sac has a normal configuration. There is no evidence of disc herniation or spinal canal stenosis. The neural foramina are patent bilaterally. C3-C4: Very minimalridging is present at C3-C4: Some flattening of anterior thecal space. There is very min imal left-sided nor from occlusion with mild facet disease C4-C5: Minimal interspace ridging is present. There is minimal left-sided nor from occlusion. There is no spinal stenosis. C5-C6: Moderate airspace ridging is present with minimal spinal stenosis. Thecal sac is preserved around th e cord. There is mild right-sided neural foramen encroachment. C6-C7: Interspace ridging is present with minimal right-sided neural foraminal encroachment. Spinal stenosi s is mild. C7-T1: The thecal sac has a normal configuration. There is no evidence of disc herniation or spinal canal s tenosis. The neural foramina are patent bilaterally. There is no abnormal contrast enhancement. CONCLUSION: Mild degenerative changes without radiographically significant spinal stenosis. Signal intensity in the cervical cord is normal. Luis Buchanan MD FACR on November 23, 2017 at 7:33 Board Certified Radiologist. This report was verified electronically.
[2017-11-23 07:38] VITALS: BP_SYST 120; BP_SYST 125; BP_SYST 152; BP_DIAS 74; BP_DIAS 83; BP_DIAS 90; PULSE 79; RESP 19; TEMP 98.3; O2SAT 96
[2017-11-23] MEDS: METOPROLOL TARTRATE 25 MG TAB PO SCH (08:08)
[2017-11-23] MEDS: DILTIAZEM-CD 240 MG CAP ER PO SCH (08:08)
[2017-11-23] MEDS: HYDROCHLOROTHIAZIDE 25 MG TAB PO SCH (08:08)
[2017-11-23] MEDS: DOCUSATE SODIUM 50 MG/SENNA 8.6 MG TAB PO SCH (08:08)
[2017-11-23] MEDS: DABIGATRAN ETEXILATE 150 MG CAP PO SCH (08:09)
[2017-11-23] MEDS: SODIUM CHLORIDE 0.9% FLUSH 10 ML FLUSH IV FLUSH SCH (08:09)
[2017-11-23] MEDS: REMOVE OLD PATCH T-DERMAL SCH (08:10)
[2017-11-23] MEDS: NICOTINE 14 MG/24 HR PATCH T-DERMAL SCH (08:10)
[2017-11-23 08:35] VITALS: PULSE 75
[2017-11-23] MEDS: INSULIN ASPART SUPPLEMENTAL SCALE SQ SCH ×2 (09:28→13:07)
--- NOTE | 2017-11-23 09:33 | HHI.DCPOC ---
Discharge Care Plan Diagnosis: (1) Olecranon fracture (2) Frequent falls (3) General weakness (4) Atrial fibrillation with RVR Goals to Promote Your Health * To prevent worsening of your condition and complications * To maintain your health at the optimal level Directions to Meet Your Goals Take your medications as prescribed Follow your dietary instruction Follow activity as directed Keep your appointments as scheduled Take your immunizations and boosters as scheduled If your symptoms worsen call your PCP, if no PCP go to Urgent Care Center or Emergency Room Smoking is Dangerous to Your Health. Avoid second hand smoke Call the 24-hour hour crisis hotline for domestic abuse at Azam Mancuso MD Nov 23, 2017 09:33
--- NOTE | 2017-11-23 09:38 | HHI.DS ---
Discharge Summary Admission Date Nov 20, 2017 at 11:43 Discharge Date: Nov 23, 2017 Admitting Diagnosis generalized weakness, frequent Falls (1) General weakness ICD Code: R53.1 - Weakness Status: Acute (2) Frequent falls ICD Code: R29.6 - Repeated falls Status: Acute (3) Atrial fibrillation with RVR ICD Code: I48.91 - Unspecified atrial fibrillation Status: Acute (4) Olecranon fracture ICD Code: S52.023A - Displaced fracture of olecranon process without intraarticular extension of unspecified ulna, initial encounter for closed fracture Procedures None Brief History - From Admission 72-year-old female with history of DM, Afib, HTN, COPD, presents with a 2 week history of worsening weakness and recurrent falls. The patient states her son-in -law is a PA in [place] and recommended she come to the ER for further evaluation. She is seen with her brother at bedside who lives in [place]. The patient reports she fell on Saturday 11/18. She denies hitting her head or any loss of consciousness. She states her legs just became weak and gave out. She also reports she fell last Tuesday 11/14 after her legs became weak, and she was unable to get off the floor for a couple hours until a neighbor found her. She started using a walker recently because of the weakness in her legs. She lives alone. Denies any neck or back pain, headache, lightheadedness, dizziness , chest pain, palpitations, shortness of breath, abdominal pain, nausea/vomiting , or any other medical complaints at this time. CBC/BMP: 11/22/17 0345 11/22/17 0345 Significant Findings Laboratory Tests Test 11/20/17 10:00 11/21/17 07:40 11/21/17 07:49 11/21/17 13:40 Urine Protein 30 mg/dL (NEG-TRACE) Urine Glucose (UA) 300 mg/dL (NEG) Random Glucose 307 MG/DL (74-106) Sodium Level 134 MEQ/L (136-145) Estimat Glomerular Filtration Rate 63 ML/MIN (>89) White Blood Count 12.2 TH/MM3 (4.0-11.0) Red Blood Count 5.45 MIL/MM3 (4.00-5.30) Hemoglobin 16.2 GM/DL (11.6-15.3) Hematocrit 48.6 % (35.0-46.0) Neutrophils (%) (Auto) 73.0 % (16.0-70.0) Neutrophils # (Auto) 8.9 TH/MM3 (1.8-7.7) Test 11/21/17 13:44 11/22/17 03:45 White Blood Count 11.5 TH/MM3 (4.0-11.0) Hemoglobin 15.4 GM/DL (11.6-15.3) Neutrophils # (Auto) 7.8 TH/MM3 (1.8-7.7) Prothrombin Time 12.8 SEC (9.8-11.6) Random Glucose 207 MG/DL (74-106) Estimat Glomerular Filtration Rate 70 ML/MIN (>89) Imaging Last Impressions Brain MRI 11/21/17 0000 Signed Impressions: Service Date/Time: Tuesday, November 21, 2017 12:42 - CONCLUSION: 1. Bilateral cortical atrophy and chronic white matter changes characteristic of ischemic demyelinization. 2. No acute pathology. Uday Cutler MD Chest X-Ray 11/20/17 0903 Signed Impressions: Service Date/Time: Monday, November 20, 2017 09:18 - CONCLUSION: No acute disease. Juan Lyon MD Head CT 11/20/17 0000 Signed Impressions: Service Date/Time: Monday, November 20, 2017 09:46 - CONCLUSION: 1. Mild ischemic atrophy. 2. No acute findings in the brain. Norris Schrader MD Elbow X-Ray 11/20/17 0000 Signed Impressions: Service Date/Time: Monday, November 20, 2017 09:19 - CONCLUSION: Possible avulsion injury off the tip of the olecranon. Norris Schrader MD PE at Discharge General: Elderly female in no acute distress. Heart: Tachycardic, irregular. Lungs: Clear to auscultation bilaterally. No wheezes, rales, or rhonchi. Breathing is nonlabored. Abdomen: Soft, nontender, nondistended. Extremities: No lower extremity edema. Right upper extremity in splint, sling. Psych: Alert and oriented. Pt update on day of discharge No complaints at this time. Wants to get out of the hospital. Denies chest pain , dyspnea, nausea, vomiting. Hospital Course The patient was admitted to the observation unit for further evaluation of weakness and falls. Neurology was consulted. MRI brain showed bilateral cortical atrophy and chronic white matter changes characteristic of ischemic demyelinization. Right elbow fracture was splinted in the ER. Patient had elevated heart rate and beta jose was restarted. PT and OT were consulted. Arrangements were made for discharge to SNF. Pt Condition on Discharge: Stable Discharge Disposition: Discharge to SNF Discharge Time: <= 30 minutes Discharge Instructions DIET: Follow Instructions for: Diabetic Diet Activities you can perform: Regular-No Restrictions Other Activity Instructions: With assist Follow up Referrals: Orthopedics - 1 Week PCP Follow-up - 1 Week Continued Medications: Atorvastatin (Atorvastatin) 40 Mg Tab 40 MG PO HS for Cholesterol Management, #30 TAB 0 Refills Dabigatran (Pradaxa) 150 Mg Cap 150 MG PO BID for Blood Clot Prevention, #60 CAP 0 Refills Diltiazem ER 24 HR (Cartia Xt) 120 Mg Caper 240 MG PO DAILY, #30 CAP 0 Refills Glipizide/Metformin HCl (Glipizide-Metformin 5-500 mg) 5 Mg-500 Mg Tablet 1 TAB PO BID Hydrochlorothiazide (Hydrochlorothiazide) 25 Mg Tab 25 MG PO DAILY, #30 TAB 0 Refills Metoprolol Tartrate (Metoprolol Tartrate) 25 Mg Tab 25 MG PO BID, #60 TAB 0 Refills Sitagliptin (Januvia) 100 Mg Tab 100 MG PO DAILY for Blood Sugar Management, #30 TAB 0 Refills Discontinued Medications: Atenolol (Atenolol) 50 Mg Tab 150 MG PO DAILY for Blood Pressure Management, #30 TAB 0 Refills Lisinopril (Lisinopril) 40 Mg Tab 40 MG PO DAILY for Blood Pressure Management, #30 TAB 0 Refills Metformin (Metformin) 500 Mg Tab 500 MG PO BIDPC for Blood Sugar Management, #60 TAB 0 Refills Azam Mancuso MD Nov 23, 2017 09:38
[2017-11-23 10:15] LABS: RPR SCREEN FOR REFLEX NON-REACTIVE (NON-REACTVE)
[2017-11-23 11:53] VITALS: PULSE 92
[2017-11-23 12:28] VITALS: BP 120/85; PULSE 78; RESP 18; TEMP 97.6; O2SAT 93
--- NOTE | 2017-11-23 18:33 | HHI.PR ---
Review/Management Daily Summary seen in the afternoon before d/linnea mri negative acute was doing better and going to nursing rehab needs pt I ok'd d/c Subjective Subjective Comments No acute events reported No headache Allergies Allergies Coded Allergies No Known Allergies (Unverified12/10/15) Exam I&O / VS 11/23/17 11/23/17 11/24/17 15:00 23:00 07:00 # Voids 2 Vital Signs Date Time Temp Pulse Resp B/P (MAP) Pulse Ox O2 Delivery O2 Flow Rate FiO2 11/23/17 12:28 97.6 78 18 120/85 (97) 93 11/23/17 11:53 92 11/23/17 08:35 75 11/23/17 07:38 98.3 79 19 152/83 (106) 96 125/90 (102) 120/74 (89) Automatic Cuff 11/23/17 04:28 98.0 79 18 132/77 (95) 97 11/23/17 00:16 98.0 70 18 133/85 (101) 95 11/22/17 20:19 98.0 80 18 155/76 (102) 96 Srikanth Torrez MD Nov 23, 2017 18:33
== END 2017-11-23 16:05 ==
LOC: NEPC 08:42 → NEDA 11:43 → NEPFCDU 12:39
PROVIDERS: ADMIT Family Medicine; ATTEND Family Medicine
DX: S52.023A Displaced fracture of olecranon process without intraarticular extension of unspecified ulna, initial encounter for closed fracture (principal); R29.6 Repeated falls; R53.1 Weakness; R26.9 Unspecified abnormalities of gait and mobility; I10 Essential (primary) hypertension; I48.2 Chronic atrial fibrillation; J44.9 Chronic obstructive pulmonary disease, unspecified; E11.9 Type 2 diabetes mellitus without complications; F17.210 Nicotine dependence, cigarettes, uncomplicated; Z79.84 Long term (current) use of oral hypoglycemic drugs; W19.XXXA Unspecified fall, initial encounter
CPT/HCPCS: 70450; 70553; 71045; 72156; 73080; 80048; 80053; 81001; 82550; 82552; 82607; 82948; 83605; 83735; 84484; 85025; 85610; 85730; 86592; 93005; 96372; 97116; 97163; 97166; 99285; A9579; G0378; G8987; G8988; J1815; J7040